=== PATIENT | male | born 1985 | race African-American/Black ===

== ENCOUNTER 2024-08-11 14:04 | Outpatient (REF) | payer MEDICAID, SELFPAY ==
[2024-08-11 17:36] LABS: Immature Retic Fraction 20.9 % (2.3-13.4); Retic HGB Equivalent 32.9 pg (30.0-35.0); Reticulocyte Percent 1.8 % (0.5-1.8); Reticulocytes Absolute 0.073 X10*6/uL (0.026-0.095)
[2024-08-11 18:14] LABS: Iron 63 mcg/dL (45-160); Percent Iron Saturation 33 % (15-50); Total Iron Binding Capacity 189 mcg/dL (228-428); Unsaturated Iron Binding 126 ug/dL
[2024-08-11 18:27] LABS: Ferritin 112 ng/mL (20-250)
[2024-08-11 18:37] LABS: Folate 12.1 ng/mL (> or = 4.0); Vitamin B12 722 pg/mL (200-900)
== END 2024-08-11 14:05 | disposition home or self-care (01) ==
LOC: HO.CHCLDS 14:04
PROVIDERS: Visit Provider Internal Medicine
DX: D64.9 Anemia, unspecified (principal); K08.109 Complete loss of teeth, unspecified cause, unspecified class
CPT/HCPCS: 36415; 82607; 82728; 82746; 83540; 85045